=== PATIENT | male | born 1975 | race Caucasian/White ===

== ENCOUNTER 2019-03-02 15:43 | Outpatient (CLI) | payer OTHER | END 2019-03-02 15:44 | disposition home or self-care (01) | LOC: CTENTCT 15:43 | PROVIDERS: ATTEND Otolaryngology Plastic Surgery within the Head & Neck | DX: H91.90 Unspecified hearing loss, unspecified ear (principal); H70.90 Unspecified mastoiditis, unspecified ear | CPT/HCPCS: 70480 ==